=== PATIENT | male | born 1945 | race Caucasian/White ===

== ENCOUNTER 2018-12-12 13:57 | Day surgery (SDC) | payer OTHER ==
[2018-12-07 16:16] LABS: BASOPHILS % (AUTO) 0.3 % (0-1); EOSINOPHILS % (AUTO) 0.9 % (0-6); HEMATOCRIT 43.1 % (42.0-52.0); HEMOGLOBIN 14.4 g/dl (14.0-17.9); LYMPHOCYTES # (AUTO) 1.1 X10'3 (1.1-4.8); LYMPHOCYTES % (AUTO) 21.6 % (21-51); MEAN CORPUSCULAR HEMOGLOBIN 29.5 PG (27.0-31.0); MEAN CORPUSCULAR HGB CONC 33.5 g/dL (33.0-36.5); MEAN CORPUSCULAR VOLUME 88.1 FL (78-98); MEAN PLATELET VOLUME 7.4 FL (7.4-10.4); MONOCYTES # (AUTO) 0.4 X10'3 (0-0.9); MONOCYTES % (AUTO) 7.2 % (2-12); NEUTROPHILS # (AUTO) 3.6 X10'3 (1.8-7.7); PLATELET COUNT 289 X10'3 (140-440); RED CELL DISTRIBUTION WIDTH 13.5 % (11.5-14.5); WHITE BLOOD COUNT 5.2 X10'3 (4.5-11.0)
[2018-12-07 16:27] LABS: ALBUMIN 4.1 G/DL (3.4-5.0); ANION GAP 7 (8-16); BLOOD UREA NITROGEN 18 MG/DL (7-18); CALCIUM 9.1 MG/DL (8.5-10.1); CHLORIDE 106 MMOL/L (99-107); GLUCOSE 94 MG/DL (70-104); POTASSIUM 3.7 MMOL/L (3.5-5.1); SODIUM 141 MMOL/L (135-145); TOTAL CARBON DIOXIDE 28.2 MMOL/L (24-32); eGFR 82 ML/MIN
[2018-12-07 16:28] LABS: PARTIAL THROMBOPLASTIN TIME 27 SECONDS (22-32)
[~2018-12-12] VITALS: Ht 160 cm; Wt 58.3 kg
[2018-12-12] VITALS (8 sets, daily range): BP systolic 99–133; BP diastolic 56–78
[2018-12-12] MEDS ORDERED: LIDOcaine/PRILOcaine 5gm cream TP ONE (14:30)
[2018-12-12] MEDS ORDERED: LORazepam 0.5 MG tablet PO PRN (14:30)
[2018-12-12] MEDS ORDERED: diphenhydrAMINE 25mg capsule PO PRN (14:30)
[2018-12-12] MEDS ORDERED: normal saline 1,000 ML IV SCH (14:30)
[2018-12-12] MEDS ORDERED: LISI-600 PO (14:43)
[2018-12-12] MEDS ORDERED: HYDR-4353 PO (14:43)
[2018-12-12] MEDS ORDERED: ASPI-1265 PO (14:43)
[2018-12-12] MEDS ORDERED: ZOLP5TAB8 PO (14:43)
[2018-12-12] MEDS ORDERED: ATOR10TA70 PO (14:43)
[2018-12-12] MEDS ORDERED: METH-350 PO ×2 (14:43)
[2018-12-12] MEDS ORDERED: heparin 1,000 UNITS/NS 500ml 500 ML ONE ×2 (16:00→17:23)
[2018-12-12] MEDS ORDERED: iohexol 350MG/ML 100ml bottle IV ONE (17:23)
[2018-12-12] MEDS ORDERED: fentaNYL/PF 50MCG/1 ML 2ML syringe ONE (17:23)
[2018-12-12] MEDS ORDERED: midazolam 2 mg/2 ml injection ONE ×2 (17:23→17:45)
[2018-12-12] MEDS ORDERED: LIDOcaine 1% (10mg/ml)w/preservative injection 20ml MDV ONE (17:23)
[2018-12-12] MEDS ORDERED: nitroGLYCERIN-Tridil 50MG/D5W 250 ML IV ONE (17:37)
[2018-12-12] MEDS ORDERED: heparin 1,000unit/ml 10ml vial 10 ML ONE (17:37)
[2018-12-12] MEDS ORDERED: verapamil 2.5 mg/ml inj IV ONE (17:37)
== END 2018-12-12 20:20 | disposition home or self-care (01) ==
LOC: SSTAY O 13:57
PROVIDERS: ATTEND Internal Medicine Interventional Cardiology
DX: R07.9 Chest pain, unspecified (principal); I25.10 Atherosclerotic heart disease of native coronary artery without angina pectoris; I10 Essential (primary) hypertension; E78.5 Hyperlipidemia, unspecified; M19.90 Unspecified osteoarthritis, unspecified site; Z79.82 Long term (current) use of aspirin; Z79.899 Other long term (current) drug therapy; Z87.891 Personal history of nicotine dependence
CPT/HCPCS: 36415; 80048; 85025; 85610; 85730; 93005; 93458; 99152; C1769; C1894; J1644; J2001; J2250; J3010; J7030; Q0163; Q9967; 99153; A4620; J3490

== ENCOUNTER 2023-12-12 05:43 | Day surgery (SDC) | payer MEDICARE, OTHER ==
[2023-12-08 15:27] LABS: BASOPHILS % (AUTO) 0.4 % (0-1); EOSINOPHILS % (AUTO) 0.6 % (0-6); LYMPHOCYTES # (AUTO) 1.1 X10'3 (1.1-4.8); LYMPHOCYTES % (AUTO) 14.1 % (21-51); MEAN CORPUSCULAR HEMOGLOBIN 29.5 PG (27.0-31.0); MEAN CORPUSCULAR HGB CONC 33.6 g/dL (33.0-36.5); MEAN CORPUSCULAR VOLUME 87.7 FL (78-98); MONOCYTES # (AUTO) 0.5 X10'3 (0-0.9); MONOCYTES % (AUTO) 6.3 % (2-12); NEUTROPHILS # (AUTO) 6.4 X10'3 (1.8-7.7); NEUTROPHILS % (AUTO) 78.6 % (42-75); PRE OP HEMATOCRIT 42.9 % (42.0-52.0); PRE OP HEMOGLOBIN 14.4 g/dL (14.0-17.9); PRE OP PLATELET COUNT 377 X10'3 (140-440); PRE OP WHITE BLOOD COUNT 8.2 10'3 (4.8-10.8); RED BLOOD COUNT 4.89 X10'6 (4.70-6.10); RED CELL DISTRIBUTION WIDTH 13.6 % (11.5-14.5)
[2023-12-08 15:41] LABS: ALBUMIN 3.9 G/DL (3.4-5.0); ALBUMIN/GLOBULIN RATIO 1.3 (1.1-1.5); ALKALINE PHOSPHATASE 67 IU/L (46-116); BLOOD UREA NITROGEN 20 MG/DL (7-18); BUN/CREATININE RATIO 14.8 (10.0-20.0); CHLORIDE 102 MMOL/L (99-107); CREATININE 1.35 MG/DL (0.60-1.10); PRE OP ALT 16 U/L (30-65); PRE OP ANION GAP 0 (8-16); PRE OP AST 18 U/L (10-37); PRE OP BILIRUB, TOTAL 0.5 MG/DL (0.0-1.0); PRE OP GLUCOSE 101 MG/DL (70-104); PRE OP POTASSIUM 4.5 MMOL/L (3.4-5.1); PRE OP SODIUM 137 MMOL/L (135-145); TOTAL CARBON DIOXIDE 34.6 MMOL/L (24-32); TOTAL PROTEIN 6.9 G/DL (6.4-8.2); eGFR 51 ML/MIN
[~2023-12-12] VITALS: Ht 160 cm; Wt 52.6 kg
[2023-12-12] VITALS (8 sets, daily range): BP systolic 138–166; BP diastolic 71–92; PULSE 57–72; RESP 9–16; TEMP 97.9; O2SAT 97–100
[~2023-12-12 05:43] MED LIST: ASPI-1265 PO; FAMO20TA8 PO; FLUT16SP26 BOTHNARES; HYDR-4353 PO; LISI10TA27 PO; MELA5TAB12 PO; METH20TA40 PO; ZOLP5TAB8 PO
[2023-12-12] MEDS: ceFAZolin 2gm in dextrose, iso 50 ML IV ONE (06:24)
[2023-12-12] MEDS: famotidine 20mg tablet PO ONE (06:24)
[2023-12-12] MEDS: ringers solution, lacted 1,000 ML IV SCH (06:24)
[2023-12-12] MEDS ORDERED: BUPIVAcaine 2.5mg/ml inj 50ml vial (contains preservative) ONE (06:56)
[2023-12-12] MEDS ORDERED: LIDOcaine 2% (20mg/ml) 5ml vial ONE (06:56)
[2023-12-12] MEDS ORDERED: LIDOcaine 0.5% (5mg/ml) 50ml vial ONE (07:41)
[2023-12-12] MEDS ORDERED: propofol inj 20 ML IV ONE ×2 (07:44→08:33)
[2023-12-12] MEDS ORDERED: fentaNYL/PF 50MCG/1 ML 2ML syringe ONE (07:44)
[2023-12-12] MEDS ORDERED: midazolam 1 mg/ML 2ml injection ONE (07:44)
[2023-12-12] MEDS ORDERED: morphine 4 MG/ML inj SYRINge IV PRN (07:55)
[2023-12-12] MEDS ORDERED: morphine 2 MG/ML inj. syringe IV PRN (07:55)
[2023-12-12] MEDS ORDERED: ondansetron/PF 4mg/2ml inj IV PRN (07:55)
[2023-12-12] MEDS ORDERED: meperidine/PF 25mg/ml syringe IV PRN ×3 (07:55)
[2023-12-12] MEDS ORDERED: ringers solution, lacted 1,000 ML IV SCH (07:55)
[2023-12-12] MEDS ORDERED: proCHLORperazine 10 MG/2 ml inj IV PRN (07:55)
[2023-12-12] MEDS: BUPIVAcaine 2.5mg/ml inj 50ml vial (contains preservative) IJ ONE (08:50)
== END 2023-12-12 10:14 | disposition home or self-care (01) ==
LOC: PAS 05:43
PROVIDERS: ATTEND Orthopaedic Surgery Hand Surgery
DX: M18.12 Unilateral primary osteoarthritis of first carpometacarpal joint, left hand (principal); M65.322 Trigger finger, left index finger; M19.042 Primary osteoarthritis, left hand; I10 Essential (primary) hypertension; E11.9 Type 2 diabetes mellitus without complications; K21.9 Gastro-esophageal reflux disease without esophagitis; G47.00 Insomnia, unspecified; I25.2 Old myocardial infarction; F98.8 Other specified behavioral and emotional disorders with onset usually occurring in childhood and adolescence; Z86.73 Personal history of transient ischemic attack (TIA), and cerebral infarction without residual deficits; Z87.891 Personal history of nicotine dependence; Z79.82 Long term (current) use of aspirin; Z79.891 Long term (current) use of opiate analgesic; Z79.899 Other long term (current) drug therapy; Z95.5 Presence of coronary angioplasty implant and graft; Z98.890 Other specified postprocedural states
CPT/HCPCS: 25312; 25447; 26160; 36415; 80053; 82948; 85025; 93005; J0690; J2250; J2704; J3010; J3490; J7030; J7120; Z7506; Z7512; A4215; A4618; A6449; A7000